=== PATIENT | male | born 1975 | race Caucasian/White ===

== ENCOUNTER 2021-05-26 03:38 | Emergency (ER) | payer MEDICAID ==
[~2021-05-26] VITALS: Ht 170.2 cm; Wt 101.6 kg
--- NOTE | 2021-05-26 03:49 | NUR ---
PT TAKEN TO BED 2
[2021-05-26 03:50] VITALS: BP 140/78
[2021-05-26] MEDS ORDERED: PROCHLORPERAZINE 10 MG/2 ML VIAL IM ONE (04:15)
[2021-05-26] MEDS ORDERED: DIPH25TA53 PO (04:20)
[2021-05-26] MEDS ORDERED: FAMO-90 PO (04:20)
[2021-05-26] MEDS ORDERED: EPIN1KIT31 IM (04:20)
[2021-05-26] MEDS ORDERED: PRED20TA5 PO (04:20)
[2021-05-26] MEDS: diphenhydrAMINE 50 MG/ML VIAL IM ONE (04:27)
[2021-05-26] MEDS: methylPREDNISolone SS 125 MG/2 ML VIAL IM ONE (04:27)
[2021-05-26] MEDS: FAMOTIDINE 20 MG TAB PO ONE (04:27)
--- NOTE | 2021-05-26 04:39 | NUR ---
PT GIVEN ORDERED SOLUMEDROL, BENADRYL IM SHOT WELL PEPSID PO . PT VERBELIZED UNDERSTANDING OF THE MEDICATIONS.
== END 2021-05-26 05:10 | disposition home or self-care (01) ==
LOC: MED 03:38
DX: L50.9 Urticaria, unspecified (principal)
CPT/HCPCS: 96372; 99284; J1200; J2930